=== PATIENT | male | born 1980 | race Caucasian/White ===

== ENCOUNTER 2020-03-25 00:39 | Emergency (ER) | payer OTHER ==
--- NOTE | 2020-03-25 00:44 | EDM.PDOC ---
ED HPI GENERAL MEDICAL PROBLEM - General Chief Complaint: Abdominal Pain Stated Complaint: ABD PAIN Time Seen by Provider: 03/25/20 00:42 Source of Information: Reports: Patient History Limitations: Reports: No Limitations - History of Present Illness Onset Date: 03/25/20 Onset Time: 18:00 Duration: Getting Worse Quality: Reports: Stabbing (Right lower quadrant), Other (States this is nothing like his usual ulcerative colitis pain) Severity: Severe Right Lower Abdominal Pain Score (Numeric/FACES): 8 - Related Data Allergies Allergy/AdvReac Type Severity Reaction Status Date / Time No Known Allergies Allergy Verified 03/25/20 00:54 Home Meds: Home Meds NK [No Known Home Meds] 03/25/20 [History] Past Medical History Gastrointestinal History: Reports: Inflammatory Bowel Disease (Ulcerative colitis) Social & Family History - Living Situation & Occupation Living situation: Reports: (Here on vacation staying in a cabin with his and children.) ED ROS GENERAL - Review of Systems Review Of Systems: See Below Constitutional: Reports: Chills, Diaphoresis, Decreased Appetite HEENT: Reports: No Symptoms Respiratory: Reports: No Symptoms Cardiovascular: Reports: No Symptoms GI/Abdominal: Reports: Abdominal Pain, Bloody Stool, Diarrhea, Decreased Appetite, Nausea, Vomiting Musculoskeletal: Reports: No Symptoms Skin: Reports: No Symptoms ED EXAM, GI/ABD - Physical Exam Exam: See Below Text/Narrative:: Appears quite pale initially Exam Limited By: No Limitations General Appearance: Alert, WD/WN, Moderate Distress, Other (Observed to walk into the emergency department completely erect and not bent over in any distress) Eyes: Bilateral: Normal Appearance, Pale Conjunctiva Ears: Normal External Exam Nose: Normal Inspection Throat/Mouth: Normal Teeth, Normal Voice Head: Atraumatic, Normocephalic Neck: Normal Inspection, Supple Respiratory/Chest: No Respiratory Distress, Lungs Clear Cardiovascular: Normal Peripheral Pulses, Regular Rate, Rhythm, No Edema GI/Abdominal Exam: No Organomegaly, No Distention, No Mass, Guarding (Right lower quadrant), Tender, Abnormal Bowel Sounds (Quiet bowel sounds) Course - Vital Signs Text/Narrative:: Initial differential diagnosis: Ulcerative colitis flare, perforation, bowel obstruction, appendicitis, anemia. The patient is initially treated with 1 L IV fluid bolus, Dilaudid, and Zofran. Notified at 0130 by nursing staff that Hgb=6+. @ 0233 we are in reciept of CT interpretation which shows acute appendicitis, no free air or free fluid. At 0253 I discussed the patient with Dr. Coker from [facility] in [place]. He is excepted the patient in transfer there. Last Recorded V/S: Last Vital Signs Temp 36.7 C 03/25/20 01:01 Pulse 81 03/25/20 02:13 Resp 17 03/25/20 02:13 BP 134/65 03/25/20 02:13 Pulse Ox 100 03/25/20 02:13 - Orders/Labs/Meds Orders: Active Orders 24 hr Category Date Time Status ANTIBODY IDENTIFICATION [BBK] Stat Lab 03/25/20 01:25 Results PATIENT RETYPE [BBK] Stat Lab 03/25/20 01:25 Results TYPE AND SCREEN [BBK] Stat Lab 03/25/20 01:25 Results UA W/MICROSCOPIC [URIN] Urgent Lab 03/25/20 01:13 Ordered Ampicillin/Sulbactam Na [Unasyn] 3 gm Med 03/25/20 02:46 Active Sodium Chloride 0.9% [Normal Saline] 100 ml IV ONETIME Sodium Chloride 0.9% [Normal Saline] 1,000 ml Med 03/25/20 02:45 Active IV ASDIRECTED Medication Orders Sodium Chloride (Normal Saline) 1,000 mls @ 500 mls/hr IV ASDIRECTED YANA Last Admin: 03/25/20 02:38 Dose: 500 mls/hr Documented by: ANNABELLE Ampicillin Sodium/Sulbactam (Sodium 3 gm/ Sodium Chloride) 100 mls @ 200 mls/hr IV ONETIME ONE Stop: 03/25/20 03:15 Labs: Laboratory Tests 03/25/20 03/25/20 03/25/20 Range/Units 01:25 01:25 01:25 WBC 16.4 H (4.5-11.0) K/uL RBC 1.91 L (4.30-5.90) M/uL Hgb 6.9 L* (12.0-15.0) g/dL Hct 24.0 L (40.0-54.0) % MCV 126 H (80-98) fL MCH 36 H (27-31) pg MCHC 29 L (32-36) % Plt Count 351 (150-400) K/uL ESR (0-20) mm/hr PT (9.5-12.0) sec INR (0.80-1.20) Sodium 137 L (140-148) mmol/L Potassium 4.0 (3.6-5.2) mmol/L Chloride 101 (100-108) mmol/L Carbon Dioxide 21 (21-32) mmol/L Anion Gap 19.0 H (5.0-14.0) mmol/L BUN 16 (7-18) mg/dL Creatinine 1.0 (0.8-1.3) mg/dL Est Cr Clr Drug Dosing 117.59 mL/min Estimated GFR (MDRD) > 60 (>60) Glucose 114 H (74-106) mg/dL Lactic Acid 1.7 (0.4-2.0) mmol/L Calcium 8.8 (8.5-10.1) mg/dL Total Bilirubin 4.7 H (0.2-1.0) mg/dL AST 84 H (15-37) U/L ALT 30 (12-78) U/L Alkaline Phosphatase 39 L (46-116) U/L Total Protein 7.6 (6.4-8.2) g/dL Albumin 4.5 (3.4-5.0) g/dL Globulin 3.1 (2.3-3.5) g/dL Albumin/Globulin Ratio 1.5 (1.2-2.2) Lipase (73-393) U/L Blood Type Gel Antibody Screen 03/25/20 03/25/20 03/25/20 Range/Units 01:25 01:25 01:25 WBC (4.5-11.0) K/uL RBC (4.30-5.90) M/uL Hgb (12.0-15.0) g/dL Hct (40.0-54.0) % MCV (80-98) fL MCH (27-31) pg MCHC (32-36) % Plt Count (150-400) K/uL ESR 108 H (0-20) mm/hr PT 11.1 (9.5-12.0) sec INR 1.02 (0.80-1.20) Sodium (140-148) mmol/L Potassium (3.6-5.2) mmol/L Chloride (100-108) mmol/L Carbon Dioxide (21-32) mmol/L Anion Gap (5.0-14.0) mmol/L BUN (7-18) mg/dL Creatinine (0.8-1.3) mg/dL Est Cr Clr Drug Dosing mL/min Estimated GFR (MDRD) (>60) Glucose (74-106) mg/dL Lactic Acid (0.4-2.0) mmol/L Calcium (8.5-10.1) mg/dL Total Bilirubin (0.2-1.0) mg/dL AST (15-37) U/L ALT (12-78) U/L Alkaline Phosphatase (46-116) U/L Total Protein (6.4-8.2) g/dL Albumin (3.4-5.0) g/dL Globulin (2.3-3.5) g/dL Albumin/Globulin Ratio (1.2-2.2) Lipase 131 (73-393) U/L Blood Type Gel Antibody Screen 03/25/20 Range/Units 01:25 WBC (4.5-11.0) K/uL RBC (4.30-5.90) M/uL Hgb (12.0-15.0) g/dL Hct (40.0-54.0) % MCV (80-98) fL MCH (27-31) pg MCHC (32-36) % Plt Count (150-400) K/uL ESR (0-20) mm/hr PT (9.5-12.0) sec INR (0.80-1.20) Sodium (140-148) mmol/L Potassium (3.6-5.2) mmol/L Chloride (100-108) mmol/L Carbon Dioxide (21-32) mmol/L Anion Gap (5.0-14.0) mmol/L BUN (7-18) mg/dL Creatinine (0.8-1.3) mg/dL Est Cr Clr Drug Dosing mL/min Estimated GFR (MDRD) (>60) Glucose (74-106) mg/dL Lactic Acid (0.4-2.0) mmol/L Calcium (8.5-10.1) mg/dL Total Bilirubin (0.2-1.0) mg/dL AST (15-37) U/L ALT (12-78) U/L Alkaline Phosphatase (46-116) U/L Total Protein (6.4-8.2) g/dL Albumin (3.4-5.0) g/dL Globulin (2.3-3.5) g/dL Albumin/Globulin Ratio (1.2-2.2) Lipase (73-393) U/L Blood Type B POSITIVE Gel Antibody Screen Positive A* Meds: Medications Generic Name Dose Route Start Last Admin Trade Name Patti PRN Reason Stop Dose Admin Sodium Chloride 1,000 mls @ 500 mls/hr 03/25/20 02:45 03/25/20 02:38 Normal Saline IV 500 mls/hr ASDIRECTED YANA Administration Ampicillin Sodium/Sulbactam 100 mls @ 200 mls/hr 03/25/20 02:46 Sodium 3 gm/ Sodium Chloride IV 03/25/20 03:15 ONETIME ONE Discontinued Medications Generic Name Dose Route Start Last Admin Trade Name Patti PRN Reason Stop Dose Admin Hydromorphone HCl 0.5 mg 03/25/20 01:15 03/25/20 01:27 Dilaudid IVPUSH 03/25/20 01:16 0.5 mg ONETIME ONE Administration Hydromorphone HCl 1 mg 03/25/20 02:36 Dilaudid IVPUSH 03/25/20 02:37 ONETIME ONE Sodium Chloride 1,000 mls @ 999 mls/hr 03/25/20 01:15 03/25/20 01:27 Normal Saline IV 03/25/20 02:15 999 mls/hr .BOLUS ONE Administration Sodium Chloride 78 mls @ 3.8 mls/sec 03/25/20 01:42 03/25/20 01:52 Normal Saline IV 03/25/20 01:43 3.8 mls/sec ASDIRECTED STA Administration Iopamidol 124 ml 03/25/20 01:42 03/25/20 01:52 Isovue-300 (61%) IV 03/25/20 01:43 150 ml . DIRECTED STA Administration Ondansetron HCl 4 mg 03/25/20 01:15 03/25/20 01:27 Zofran IVPUSH 03/25/20 01:16 4 mg ONETIME ONE Administration Departure - Departure Time of Disposition: 02:55 Disposition: DC/Tfer to Other 70 Condition: Serious Clinical Impression: Appendicitis - Discharge Information Referrals: PCP,None [Primary Care Provider] - Forms: ED Department Discharge, Interfacility Transfer LISAALA Sepsis Event Note (ED) - Focused Exam Vital Signs: Vital Signs Temp Pulse Resp BP Pulse Ox 03/25/20 02:13 81 17 134/65 100 03/25/20 01:01 36.7 C 76 18 134/65 100 03/25/20 01:00 36.7 C 76 18 134/65 100 - My Orders Last 24 Hours: My Active Orders 03/25/20 01:13 UA W/MICROSCOPIC [URIN] Urgent 03/25/20 01:25 ANTIBODY IDENTIFICATION [BBK] Stat PATIENT RETYPE [BBK] Stat TYPE AND SCREEN [BBK] Stat 03/25/20 02:45 Sodium Chloride 0.9% [Normal Saline] 1,000 ml IV ASDIRECTED 03/25/20 02:46 Ampicillin/Sulbactam Na [Unasyn] 3 gm Sodium Chloride 0.9% [Normal Saline] 100 ml IV ONETIME - Assessment/Plan Last 24 Hours: My Active Orders 03/25/20 01:13 UA W/MICROSCOPIC [URIN] Urgent 03/25/20 01:25 ANTIBODY IDENTIFICATION [BBK] Stat PATIENT RETYPE [BBK] Stat TYPE AND SCREEN [BBK] Stat 03/25/20 02:45 Sodium Chloride 0.9% [Normal Saline] 1,000 ml IV ASDIRECTED 03/25/20 02:46 Ampicillin/Sulbactam Na [Unasyn] 3 gm Sodium Chloride 0.9% [Normal Saline] 100 ml IV ONETIME
[2020-03-25] MEDS ORDERED: Ondansetron 4 MG/2 ML SDV IVPUSH ONE (01:15)
[2020-03-25] MEDS ORDERED: Sodium Chloride 0.9% 1,000 ML IV ONE (01:15)
[2020-03-25] MEDS ORDERED: HYDROmorphone 0.5 MG/0.5 ML Syringe IVPUSH ONE (01:15)
[2020-03-25] MEDS ORDERED: Iopamidol 612 MG/ML 150 ML Bottle IV STA (01:42)
--- NOTE | 2020-03-25 02:29 | CRLCT ---
INDICATION: Ulcerative colitis, right lower quadrant pain TECHNIQUE: CT abdomen and pelvis acquired with IV contrast. 124 cc Isovue-300 COMPARISON: None FINDINGS: Lower chest: Unremarkable. Liver: Unremarkable. Spleen: Splenomegaly. Pancreas: Unremarkable. Gallbladder and bile ducts: Unremarkable. Kidneys: Unremarkable. Adrenal glands: Unremarkable. GI tract: Diffuse colonic fecal retention. The appendix is dilated up to 8-9 millimeters, thick-walled and fluid-filled with adjacent inflammatory stranding. Findings consistent with acute appendicitis. Vascular structures: Unremarkable. Lymph nodes: Unremarkable. Miscellaneous: Unremarkable. No free air or significant free fluid. Pelvic Organs: Unremarkable. Bones: Unremarkable for age. IMPRESSION: Findings consistent with appendicitis. Splenomegaly. Dictated by Negrito Izquierdo MD @ 03/25/2020 2:26:46 AM Please note that all CT scans at this facility use dose modulation, iterative reconstruction, and/or weight-based dosing when appropriate to reduce radiation dose to as low as reasonably achievable. Dictated by: Negrito Izquierdo MD @ 03/25/2020 02:27:01 (Electronically Signed)
[2020-03-25] MEDS ORDERED: HYDROmorphone 1 MG/ML Syringe IVPUSH ONE (02:36)
[2020-03-25] MEDS ORDERED: Sodium Chloride 0.9% 1,000 ML IV SCH (02:45)
[2020-03-25] MEDS ORDERED: Ampicillin/Sulbactam Na 3 GM in Sodium Chloride 0.9% 100 ML IV ONE (02:46)
== END 2020-03-25 03:56 | disposition other institution (70) ==
LOC: JP.ED 00:39
DX: K37 Unspecified appendicitis (principal)
CPT/HCPCS: 36415; 74177; 80053; 81001; 83605; 83690; 85027; 85610; 85651; 86850; 86900; 86901; 96361; 96365; 96375; 96376; 99285; J0295; J1170; J2405; J7030; J7050; Q9967

== ENCOUNTER 2020-03-27 17:40 | Emergency (ER) | payer OTHER ==
--- NOTE | 2020-03-27 18:11 | EDM.PDOC ---
ED HPI GENERAL MEDICAL PROBLEM - General Chief Complaint: General Stated Complaint: ABDOMINAL PAIN Time Seen by Provider: 03/27/20 18:03 Source of Information: Reports: Patient History Limitations: Reports: No Limitations - History of Present Illness INITIAL COMMENTS - FREE TEXT/NARRATIVE: Patient presents for evaluation of right upper quadrant pain today since having an appendectomy yesterday, March 26, at [facility] in [place]. The appendicitis was diagnosed during an E.D. visit here and he was transferred for definitive surgery. He has a history of ulcerative colitis and apparently also macrocytic anemia which he says was felt to be hemolytic in nature. His hemoglobin was found to be below 7 and he was transfused 1 unit of packed cells while at [facility] for his appendectomy. He was discharged yesterday and returned to this area, where he was camping with family. Today he walked outside in [facility] but did not have any particularly strenuous day. He noticed that when he walked, he would feel pain in the right upper quadrant and especially if he took a deep breath in. If he pushes along the right upper quadrant rib margin, he says that he feels bubbly or crackly in that same area. No fever or chills. He has been able to eat or drink and is not nauseated nor vomiting. Additionally he has noticed air bubbles in his urine as a new finding today. He has no dysuria, urgency, hematuria. Onset: Gradual Duration: Day(s): Location: Reports: Chest, Abdomen Quality: Reports: Ache Severity: Moderate Improves with: Reports: None Worsens with: Reports: Movement Associated Symptoms: Denies: Cough, Loss of Appetite, Nausea/Vomiting - Related Data Allergies Allergy/AdvReac Type Severity Reaction Status Date / Time No Known Allergies Allergy Verified 03/25/20 00:54 Home Meds: Home Meds NK [No Known Home Meds] 03/25/20 [History] Past Medical History Gastrointestinal History: Reports: Inflammatory Bowel Disease Other Gastrointestinal History: ulcerative colitis Hematologic History: Reports: Anemia - Infectious Disease History Infectious Disease History: Reports: Chicken Pox, Influenza - Past Surgical History GI Surgical History: Reports: Appendectomy Social & Family History - Tobacco Use Smoking Status *Q: Never Smoker - Caffeine Use Caffeine Use: Reports: None - Recreational Drug Use Recreational Drug Use: No - Living Situation & Occupation Living situation: Reports: (Here on vacation staying in a cabin with his and children.) ED ROS GENERAL - Review of Systems Review Of Systems: See Below Constitutional: Reports: No Symptoms GI/Abdominal: Reports: Abdominal Pain (Mild), Bloody Stool (He typically notices some blood in stools secondary to his ulcerative colitis.). Denies: Constipation, Diarrhea ED EXAM, GENERAL - Physical Exam Exam: See Below Free Text/Narrative:: This is a composed adult male in room 5. Vital signs are unremarkable. Exam Limited By: No Limitations General Appearance: Alert, No Apparent Distress Respiratory/Chest: No Respiratory Distress, Lungs Clear Cardiovascular: Regular Rate, Rhythm GI/Abdominal: Soft, No Distention, Tender (Minimal generalized abdominal tenderness, in particular near the laparoscopic incision ports. No discharge from any of the incisions. Bowel sounds are present.). No: Distended, Guarding, Rigid, Abnormal Bowel Sounds Course - Vital Signs Last Recorded V/S: Last Vital Signs Temp 36.4 C 03/27/20 17:58 Pulse 78 03/27/20 20:04 Resp 16 03/27/20 20:04 BP 122/64 03/27/20 20:04 Pulse Ox 100 03/27/20 20:04 - Orders/Labs/Meds Orders: Active Orders 24 hr Category Date Time Status Abdomen 1V Upright [CR] Stat Exams 03/27/20 18:25 Taken Labs: Laboratory Tests 03/27/20 03/27/20 Range/Units 18:38 18:38 WBC 8.0 (4.5-11.0) K/uL RBC 1.78 L (4.30-5.90) M/uL Hgb 6.2 L* (12.0-15.0) g/dL Hct 21.5 L (40.0-54.0) % MCV 121 H (80-98) fL MCH 35 H (27-31) pg MCHC 29 L (32-36) % Plt Count 295 (150-400) K/uL Neut % (Auto) 77 H (36-66) % Lymph % (Auto) 15 L (24-44) % [place] % (Auto) 7 H (2-6) % Eos % (Auto) 1 L (2-4) % Baso % (Auto) 0 (0-1) % Sodium 140 (140-148) mmol/L Potassium 4.0 (3.6-5.2) mmol/L Chloride 105 (100-108) mmol/L Carbon Dioxide 27 (21-32) mmol/L Anion Gap 8.2 (5.0-14.0) mmol/L BUN 18 (7-18) mg/dL Creatinine 1.1 (0.8-1.3) mg/dL Est Cr Clr Drug Dosing 106.90 mL/min Estimated GFR (MDRD) > 60 (>60) Glucose 98 (74-106) mg/dL Calcium 8.6 (8.5-10.1) mg/dL Total Bilirubin 3.2 H (0.2-1.0) mg/dL AST 43 H (15-37) U/L ALT 24 (12-78) U/L Alkaline Phosphatase 41 L (46-116) U/L Total Protein 6.4 (6.4-8.2) g/dL Albumin 3.6 (3.4-5.0) g/dL Globulin 2.8 (2.3-3.5) g/dL Albumin/Globulin Ratio 1.3 (1.2-2.2) - Re-Assessments/Exams Free Text/Narrative Re-Assessment/Exam: 03/27/20 23:06 He is concerned about his right upper quadrant discomfort as the main thing. On further questioning about "air in his urine" what he describes is noticing more bubbles in the water of the toilet while urinating and after. There is not any air noticed with in his urine stream as far as he can tell. His generally persistent blood loss in stools is related to his treatment refractory ulcerative colitis, having failed many medications including Biologics. I discussed that he may have residual air under his diaphragm based on recent surgery. I will look with an upright abdomen x-ray and also double check his labs. 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 Further outpatient work-up is anticipated once he returns home to [place]. 03/27/20 23:08 I returned later to show him pictures of his upright abdomen x-ray. There is subdiaphragmatic air on both sides but atypical amount that I would expect being 24 hours postop. His hemoglobin is 6.2 although his white count is normal. He does have macrocytosis. His bilirubin is 3.2 and liver enzymes are minimally elevated. I reviewed his case with Dr. Rajput at [facility] in [place]. He was the one who performed his surgery. He feels the amount of air I described is appropriate for this time and is postop.. If urinary symptoms worsen and it is actually felt that he truly has air in his urine it could be because of injury to the bladder but he is confident that no injury occurred during the procedure. Patient will be returning home to [place] tomorrow, . He plans to stop by the clinic near his home. Although his hemoglobin is 6.2, slightly lower than his discharge hemoglobin from [facility], he prefers to follow- up at home. He had a number of antibodies noted in his type and crossmatch and if he requires transfusion, it may be difficult to find appropriate matched blood and smaller community. He was discharged in stable condition. Reasons to return to emergency department reviewed. Departure - Departure Time of Disposition: 19:53 Disposition: Home, Self-Care Clinical Impression: Post-operative pain Anemia Qualifiers: Anemia type: acquired or hereditary hemolytic anemia Hemolytic anemia type: acquired, unspecified Qualified Code(s): D59.9 - Acquired hemolytic anemia, unspecified - Discharge Information Instructions: Pain Relief Before and After Surgery Referrals: PCP,None [Primary Care Provider] - Forms: ED Department Discharge Additional Instructions: You have subdiaphragmatic air from your surgery. That is why you have pressure under the ribs on the right side. The air (carbon dioxide) will gradually get reabsorbed by the body over the next day or two. If you actually have air bubbles in the urine, it can come from bladder injury. It is very unlikely according to your surgeon but if the bladder was injured you would get sicker over the next few days. Keep your plans to have labs drawn tomorrow in [place]. Your hemoglobin may be lower yet tomorrow but follow up with your local doctors. If you need blood, it may take longer to get it because of your antibodies. Return to ER if feeling worse. Sepsis Event Note (ED) - Evaluation Sepsis Screening Result: No Definite Risk - Focused Exam Vital Signs: Vital Signs Temp Pulse Resp BP Pulse Ox 03/27/20 20:04 78 16 122/64 100 03/27/20 17:58 36.4 C 92 12 125/52 L 100 03/27/20 17:49 36.4 C 92 12 125/52 L 100 - My Orders Last 24 Hours: My Active Orders 03/27/20 18:25 Abdomen 1V Upright [CR] Stat - Assessment/Plan Last 24 Hours: My Active Orders 03/27/20 18:25 Abdomen 1V Upright [CR] Stat
--- NOTE | 2020-03-28 09:22 | CR ---
Abdomen 1V Upright CLINICAL HISTORY: Status post appendectomy with right upper quadrant pain and pneumaturia FINDINGS: There is free intraperitoneal air under both hemidiaphragms. This may be related to recent appendectomy. There is a small amount of air in the left pelvis with an air-fluid level. This may be within the bladder. Small intestinal gas pattern is nonacute. There is moderate fecal retention in the right colon IMPRESSION: Moderate free air may be postoperative Moderate fecal retention Air in the left mid pelvis may be within the bladder
== END 2020-03-27 20:43 | disposition home or self-care (01) ==
LOC: JP.ED 17:40
DX: G89.18 Other acute postprocedural pain (principal); D59.9 Acquired hemolytic anemia, unspecified
CPT/HCPCS: 36415; 74018; 74018-26; 80053; 85025; 99284-25